=== PATIENT | female | born 1970 | race Caucasian/White ===

== ENCOUNTER → 2024-03-31 08:15 | Day surgery (SDC) | payer OTHER, SELFPAY | LOC: GI 08:15 | PROVIDERS: ATTENDING PHYSICIAN Internal Medicine Gastroenterology; FAMILY PHYSICIAN Internal Medicine Geriatric Medicine | DX: Z12.11 Encounter for screening for malignant neoplasm of colon (principal); Z86.010 Personal history of colon polyps; K64.8 Other hemorrhoids; K57.30 Diverticulosis of large intestine without perforation or abscess without bleeding; D12.3 Benign neoplasm of transverse colon; K62.1 Rectal polyp | CPT/HCPCS: 45385; 45380; 88305 ==

== ENCOUNTER → 2024-10-31 07:10 | Outpatient (REF) | payer OTHER, SELFPAY | LOC: MRI 3T 07:10 | PROVIDERS: ATTENDING PHYSICIAN Physician Assistant; FAMILY PHYSICIAN Internal Medicine Geriatric Medicine | DX: M54.16 Radiculopathy, lumbar region (principal) | CPT/HCPCS: 72148 ==

== ENCOUNTER → 2024-11-02 07:16 | Outpatient (REF) | payer OTHER, SELFPAY | LOC: WDC 07:16 | PROVIDERS: ATTENDING PHYSICIAN Obstetrics & Gynecology Gynecology | DX: Z12.31 Encounter for screening mammogram for malignant neoplasm of breast (principal) | CPT/HCPCS: 77063; 77067 ==

== ENCOUNTER → 2025-02-11 07:05 | Outpatient (REF) | payer OTHER, SELFPAY | LOC: HWRAD 07:05 | PROVIDERS: ATTENDING PHYSICIAN Nurse Practitioner Primary Care | DX: E04.1 Nontoxic single thyroid nodule (principal) | CPT/HCPCS: 76536 ==

== ENCOUNTER → 2025-11-04 07:25 | Outpatient (REF) | payer OTHER, SELFPAY | LOC: WDC 07:25 | PROVIDERS: ATTENDING PHYSICIAN Obstetrics & Gynecology Gynecology | DX: Z12.31 Encounter for screening mammogram for malignant neoplasm of breast (principal) | CPT/HCPCS: 77063; 77067 ==